=== PATIENT | male | born 2000 | race Two or more races ===

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

== ENCOUNTER 2020-01-22 07:22 | Emergency (ER) | payer MEDICAID ==
[~2020-01-22] VITALS: Ht 177.8 cm; Wt 63.5 kg
[2020-01-22] MEDS ORDERED: KETOROLAC 30MG/ML VIAL IV STA (08:22)
[2020-01-22] MEDS ORDERED: LIDOCAINE 5% PATCH TOP STA (08:22)
[2020-01-22 08:58] VITALS: BP 116/73
[2020-01-22 09:04] LABS: BASOPHILS % 0.3 % (0.0-2.0); EOSINOPHILS % 1.2 % (0.0-5.0); HEMATOCRIT. 46.8 % (42.0-52.0); HEMOGLOBIN. 15.8 g/dL (14.0-18.0); LYMPHOCYTES % 28.8 % (20.0-50.0); MEAN PLATELET VOLUME 8.2 fl (7.4-10.4); MONOCYTES % 10.5 % (2.0-8.0); NEUTROPHILS % 59.2 % (40.0-76.0); PLATELET 177 x1000/uL (130-400); RED BLOOD CELL COUNT 5.44 mill/uL (4.7-6.1); RED CELL DISTRIBUTION WIDTH 13.1 % (11.6-14.6)
[2020-01-22 09:06] LABS: CLARITY URINE CLOUDY (CLEAR); COLOR URINE DARK YELLOW (YELLOW); KETONES URINE 2+ (NEGATIVE); LEUKOCYTE ESTERASE URINE 2+ (NEGATIVE); NITRITE URINE NEGATIVE (NEGATIVE); OCCULT BLOOD URINE NEGATIVE (NEGATIVE); PH URINE 5.5 (4.5-8.0); PROTEIN URINE 1+ (NEGATIVE); SPECIFIC GRAVITY URINE 1.039 (1.005-1.030)
[2020-01-22 09:10] LABS: CHLORIDE 107 mEq/L (98-107)
== END 2020-01-22 10:59 | disposition home or self-care (01) ==
LOC: ER 07:22
DX: N39.0 Urinary tract infection, site not specified (principal); R07.89 Other chest pain
CPT/HCPCS: 36415; 71045; 80053; 81003; 83880; 84484; 85025; 87086; 93005; 96374; 99285; J1885

== ENCOUNTER 2021-01-13 07:25 | Emergency (ER) | payer MEDICAID ==
[~2021-01-13] VITALS: Ht 180.3 cm; Wt 70.0 kg
[2021-01-13] MEDS ORDERED: ACETAMINOPHEN 325MG TABLET PO STA (07:36)
[2021-01-13] MEDS ORDERED: SODIUM CHLORIDE 0.9% 1,000 ML IV ONE (07:45)
[2021-01-13 07:58] LABS: BASOPHILS % 0.9 % (0.0-2.0); EOSINOPHILS % 0.1 % (0.0-5.0); HEMATOCRIT. 41.1 % (42.0-52.0); HEMOGLOBIN. 13.8 g/dL (14.0-18.0); LYMPHOCYTES % 12.1 % (20.0-50.0); MEAN CORPUSCULAR VOLUME 83.1 fL (80.0-94.0); MEAN PLATELET VOLUME 8.3 fl (7.4-10.4); MONOCYTES % 7.8 % (2.0-8.0); NEUTROPHILS % 79.1 % (40.0-76.0); PLATELET 151 x1000/uL (130-400); RED BLOOD CELL COUNT 4.94 mill/uL (4.7-6.1); RED CELL DISTRIBUTION WIDTH 13.2 % (11.6-14.6)
[2021-01-13 08:05] LABS: CHLORIDE 109 mEq/L (98-107)
[2021-01-13 08:08] LABS: ETHANOL BLOOD < 10 mg/dL
[2021-01-13 08:43] LABS: CREATINE KINASE 12640 IU/L (39-308)
[2021-01-13 09:30] LABS: CLARITY URINE CLEAR (CLEAR); COLOR URINE YELLOW (YELLOW); KETONES URINE 1+ (NEGATIVE); LEUKOCYTE ESTERASE URINE NEGATIVE (NEGATIVE); NITRITE URINE NEGATIVE (NEGATIVE); OCCULT BLOOD URINE NEGATIVE (NEGATIVE); PROTEIN URINE NEGATIVE (NEGATIVE); UROBILINOGEN URINE 0.2 E.U./dL (0.2-1.0)
[2021-01-13 09:39] LABS: CANNABINOID URINE SCREEN PRESUMTIVE POSITIVE (NEGATIVE); PHENCYCLIDINE URINE SCREEN NEGATIVE (NEGATIVE)
[2021-01-13 09:40] LABS: *AMPHETAMINES SCREEN URINE NEGATIVE (NEGATIVE); *BARBITURATES SCREEN URINE NEGATIVE (NEGATIVE); *BENZODIAZEPINES SCREEN URINE PRESUMTIVE POSITIVE (NEGATIVE); *COCAINE SCREEN URINE NEGATIVE (NEGATIVE); METHADONE URINE SCREEN NEGATIVE (NEGATIVE); OPIATES URINE SCREEN NEGATIVE (NEGATIVE)
[2021-01-13 09:45] VITALS: BP 109/67
== END 2021-01-13 10:45 | disposition home or self-care (01) ==
LOC: ER 07:52
DX: R25.2 Cramp and spasm (principal); G40.909 Epilepsy, unspecified, not intractable, without status epilepticus; F12.10 Cannabis abuse, uncomplicated; R74.01 Elevation of levels of liver transaminase levels
CPT/HCPCS: 36415; 76705; 80053; 80305; 80320; 81003; 82550; 83690; 85025; 93005; 99285; J7030; Z7610; G0480

== ENCOUNTER 2021-05-23 12:43 | Emergency (ER) | payer MEDICAID ==
[~2021-05-23] VITALS: Ht 172.7 cm; Wt 66.0 kg
[2021-05-23] MEDS ORDERED: LEVETIRACETAM 500MG PREMIX 100 ML IV ONE (13:00)
[2021-05-23] MEDS ORDERED: LORAZEPAM 2MG/ML CPJ IV ONE (13:30)
[2021-05-23 14:10] LABS: CHLORIDE 108 mEq/L (98-107)
[2021-05-23 14:11] LABS: BASOPHILS % 0.1 % (0.0-2.0); EOSINOPHILS % 0.2 % (0.0-5.0); HEMATOCRIT. 43.7 % (42.0-52.0); HEMOGLOBIN. 14.7 g/dL (14.0-18.0); LYMPHOCYTES % 12.2 % (20.0-50.0); MEAN CORPUSCULAR HEMOGLOBIN 28.4 pg (28.0-32.0); MEAN CORPUSCULAR VOLUME 84.4 fL (80.0-94.0); MEAN PLATELET VOLUME 8.6 fl (7.4-10.4); MONOCYTES % 5.1 % (2.0-8.0); NEUTROPHILS % 82.4 % (40.0-76.0); PLATELET 187 x1000/uL (130-400); RED BLOOD CELL COUNT 5.18 mill/uL (4.7-6.1); RED CELL DISTRIBUTION WIDTH 14.2 % (11.6-14.6)
[2021-05-23] MEDS ORDERED: DEXT 5%/0.9% NACL 1,000 ML IV ONE (14:15)
[2021-05-23 14:19] LABS: PHENOBARBITAL 2.4 ug/mL (15.0-40.0); VALPROIC ACID <3.0 ug/mL ug/mL (50-100)
[2021-05-23 14:23] LABS: CARBAMAZEPINE < 0.5 ug/mL (4-12)
[2021-05-23] MEDS ORDERED: ZOLPIDEM TARTRATE 5MG TABLET PO PRN (17:00)
[2021-05-23] MEDS ORDERED: LORAZEPAM 2MG/ML CPJ IV PRN (17:00)
[2021-05-23] MEDS ORDERED: ACETAMINOPHEN 325MG TABLET PO PRN ×2 (17:00)
[2021-05-23] MEDS ORDERED: GUAIFENESIN 200MG/10ML SUGAR FREE UDC PO PRN (17:00)
[2021-05-23] MEDS ORDERED: KETOROLAC 15MG/ML VIAL IV PRN (17:00)
[2021-05-23] MEDS ORDERED: IPRATROPIUM/ALBUTEROL 0.5-3(2.5)MG/3ML NEB NEB PRN (17:00)
[2021-05-23] MEDS ORDERED: CLONIDINE 0.1MG TABLET PO PRN (17:00)
[2021-05-23] MEDS ORDERED: MAGNESIUM/ALUMINUM HYDROXIDE/SIMETHICONE 30ML UDC PO PRN (17:00)
[2021-05-23] MEDS ORDERED: ONDANSETRON HCL 4MG/2ML INJ IV PRN (17:00)
[2021-05-23] MEDS ORDERED: DOCUSATE SODIUM 100MG CAPSULE PO PRN (17:00)
[2021-05-23] MEDS ORDERED: NITROGLYCERIN 0.4MG TABLET SL SL PRN (17:15)
[2021-05-23 17:26] LABS: TOTAL IRON BINDING CAPACITY 309 ug/dL (250-450)
[2021-05-23 17:39] LABS: FOLIC ACID (FOLATE) SERUM >20 ng/mL ng/mL (>5.38)
[2021-05-23 17:50] LABS: VITAMIN B12 SERUM 383 pg/mL (211-911)
[2021-05-23 19:09] VITALS: BP 132/77
[2021-05-23] MEDS ORDERED: LEVETIRACETAM 500MG TABLET PO SCH (21:00)
[2021-05-23] MEDS ORDERED: FAMOTIDINE 20MG TABLET PO SCH (21:00)
== END 2021-05-23 19:13 | disposition left against medical advice (07) ==
LOC: ER 12:43 → CANBEDREQ 20:52
DX: G40.909 Epilepsy, unspecified, not intractable, without status epilepticus (principal)
CPT/HCPCS: 36415; 80053; 80156; 80165; 80184; 80185; 82607; 82746; 83036; 83540; 83550; 84145; 85025; 96361; 96374; 99285; J1953; J7042

== ENCOUNTER 2021-06-16 06:53 | Emergency (ER) | payer MEDICAID ==
[~2021-06-16] VITALS: Ht 180.3 cm; Wt 64.0 kg
[2021-06-16] MEDS ORDERED: LEVETIRACETAM 1000MG PREMIX 100 ML IV ONE (07:15)
[2021-06-16 07:57] LABS: BASOPHILS % 0.4 % (0.0-2.0); EOSINOPHILS % 2.2 % (0.0-5.0); HEMATOCRIT. 45.4 % (42.0-52.0); LYMPHOCYTES % 40.1 % (20.0-50.0); MEAN CORPUSCULAR VOLUME 84.8 fL (80.0-94.0); MEAN PLATELET VOLUME 8.6 fl (7.4-10.4); MONOCYTES % 9.3 % (2.0-8.0); PLATELET 169 x1000/uL (130-400); RED BLOOD CELL COUNT 5.35 mill/uL (4.7-6.1); RED CELL DISTRIBUTION WIDTH 14.4 % (11.6-14.6)
[2021-06-16 08:05] LABS: CHLORIDE 107 mEq/L (98-107)
[2021-06-16 08:11] LABS: ETHANOL BLOOD < 10 mg/dL
[2021-06-16] MEDS ORDERED: KEPP500 PO (09:51)
[2021-06-16 10:54] VITALS: BP 124/65
== END 2021-06-16 11:08 | disposition home or self-care (01) ==
LOC: ER 07:20
DX: R56.9 Unspecified convulsions (principal); Z91.14 Patient's other noncompliance with medication regimen
CPT/HCPCS: 36415; 80053; 80320; 85025; 93005; 96365; 99284; J1953; G0480

== ENCOUNTER 2021-06-28 06:41 | Emergency (ER) | payer MEDICAID ==
[~2021-06-28] VITALS: Ht 167.6 cm; Wt 73.0 kg
[~2021-06-28 06:41] MED LIST: KEPP500 PO
[2021-06-28] MEDS ORDERED: LEVETIRACETAM 1000MG PREMIX 100 ML IV ONE (07:15)
[2021-06-28 07:40] LABS: BASOPHILS % 0.2 % (0.0-2.0); HEMATOCRIT. 44.4 % (42.0-52.0); HEMOGLOBIN. 14.8 g/dL (14.0-18.0); LYMPHOCYTES % 18.6 % (20.0-50.0); MEAN CORPUSCULAR HEMOGLOBIN 28.4 pg (28.0-32.0); MEAN CORPUSCULAR VOLUME 85.1 fL (80.0-94.0); MEAN PLATELET VOLUME 8.2 fl (7.4-10.4); MONOCYTES % 9.5 % (2.0-8.0); NEUTROPHILS % 70.7 % (40.0-76.0); PLATELET 167 x1000/uL (130-400); RED BLOOD CELL COUNT 5.21 mill/uL (4.7-6.1)
[2021-06-28 07:46] LABS: CHLORIDE 112 mEq/L (98-107)
[2021-06-28 07:49] LABS: ETHANOL BLOOD < 10 mg/dL
[2021-06-28 09:56] VITALS: BP 119/67
== END 2021-06-28 10:19 | disposition home or self-care (01) ==
LOC: ER 07:42
DX: G40.909 Epilepsy, unspecified, not intractable, without status epilepticus (principal)
CPT/HCPCS: 36415; 70450; 80053; 80320; 85025; 96365; 99284; J1953; G0480

== ENCOUNTER 2021-07-16 04:15 | Emergency (ER) | payer SELFPAY ==
[~2021-07-16] VITALS: Ht 177.8 cm; Wt 79.0 kg
[2021-07-16] MEDS ORDERED: LEVETIRACETAM 500MG PREMIX 100 ML IV ONE (04:45)
[2021-07-16] MEDS ORDERED: SODIUM CHLORIDE 0.9% 1,000 ML IV ONE (04:45)
[2021-07-16 05:24] LABS: BASOPHILS % 0.2 % (0.0-2.0); EOSINOPHILS % 0.2 % (0.0-5.0); HEMATOCRIT. 44.8 % (42.0-52.0); LYMPHOCYTES % 12.6 % (20.0-50.0); MEAN CORPUSCULAR HEMOGLOBIN 28.4 pg (28.0-32.0); MEAN CORPUSCULAR VOLUME 85.3 fL (80.0-94.0); MEAN PLATELET VOLUME 8.2 fl (7.4-10.4); MONOCYTES % 5.7 % (2.0-8.0); NEUTROPHILS % 81.3 % (40.0-76.0); PLATELET 173 x1000/uL (130-400); RED BLOOD CELL COUNT 5.26 mill/uL (4.7-6.1); RED CELL DISTRIBUTION WIDTH 13.8 % (11.6-14.6)
[2021-07-16 05:27] LABS: CHLORIDE 107 mEq/L (98-107)
[2021-07-16] MEDS ORDERED: KEPP500 MT (05:34)
[2021-07-16] MEDS ORDERED: LEVETIRACETAM 100MG/ML ORAL SYR PO ONE (05:45)
[2021-07-16 06:00] VITALS: BP 118/68
[2021-07-16] MEDS ORDERED: LEVETIRACETAM 500MG/5ML CUP PO SCH (06:00)
== END 2021-07-16 06:34 | disposition home or self-care (01) ==
LOC: ER 04:22
DX: R56.9 Unspecified convulsions (principal)
CPT/HCPCS: 36415; 80053; 85025; 99283; J7030

== ENCOUNTER 2021-08-30 08:15 | Emergency (ER) | payer MEDICAID ==
[~2021-08-30] VITALS: Ht 175.3 cm; Wt 68.0 kg
[~2021-08-30 08:15] MED LIST changes: +KEPP500 MT
[2021-08-30] MEDS ORDERED: LEVETIRACETAM 1000MG PREMIX 100 ML IV ONE (09:15)
[2021-08-30 09:27] LABS: CHLORIDE 110 mEq/L (98-107)
[2021-08-30 09:29] LABS: BASOPHILS % 0.3 % (0.0-2.0); HEMATOCRIT. 44.7 % (42.0-52.0); HEMOGLOBIN. 14.6 g/dL (14.0-18.0); MEAN CORPUSCULAR VOLUME 85.5 fL (80.0-94.0); MEAN PLATELET VOLUME 8.7 fl (7.4-10.4); MONOCYTES % 7.9 % (2.0-8.0); NEUTROPHILS % 69.8 % (40.0-76.0); PLATELET 198 x1000/uL (130-400); RED BLOOD CELL COUNT 5.22 mill/uL (4.7-6.1); RED CELL DISTRIBUTION WIDTH 13.7 % (11.6-14.6)
[2021-08-30 09:31] LABS: ETHANOL BLOOD < 10 mg/dL
[2021-08-30 11:34] LABS: CLARITY URINE CLEAR (CLEAR); COLOR URINE YELLOW (YELLOW); KETONES URINE TRACE (NEGATIVE); LEUKOCYTE ESTERASE URINE NEGATIVE (NEGATIVE); NITRITE URINE NEGATIVE (NEGATIVE); OCCULT BLOOD URINE NEGATIVE (NEGATIVE); PH URINE 6.5 (4.5-8.0); PROTEIN URINE 1+ (NEGATIVE); SPECIFIC GRAVITY URINE 1.018 (1.005-1.030); UROBILINOGEN URINE 0.2 E.U./dL (0.2-1.0)
[2021-08-30 11:54] LABS: *BARBITURATES SCREEN URINE NEGATIVE (NEGATIVE); *COCAINE SCREEN URINE NEGATIVE (NEGATIVE); METHADONE URINE SCREEN NEGATIVE (NEGATIVE); OPIATES URINE SCREEN NEGATIVE (NEGATIVE)
[2021-08-30 11:55] LABS: *AMPHETAMINES SCREEN URINE NEGATIVE (NEGATIVE); *BENZODIAZEPINES SCREEN URINE NEGATIVE (NEGATIVE); CANNABINOID URINE SCREEN PRESUMTIVE POSITIVE (NEGATIVE); PHENCYCLIDINE URINE SCREEN NEGATIVE (NEGATIVE)
[2021-08-30] MEDS ORDERED: LEVETIRACETAM 500 MG in SODIUM CHLORIDE 0.9% 100 ML IV SCH (12:45)
[2021-08-30] MEDS ORDERED: DOCUSATE SODIUM 100MG CAPSULE PO PRN (12:45)
[2021-08-30] MEDS ORDERED: LORAZEPAM 0.5MG TABLET PO PRN (12:45)
[2021-08-30] MEDS ORDERED: ACETAMINOPHEN 325MG TABLET PO PRN ×2 (12:45)
[2021-08-30] MEDS ORDERED: IPRATROPIUM/ALBUTEROL 0.5-3(2.5)MG/3ML NEB HHN PRN (12:45)
[2021-08-30] MEDS ORDERED: HYDROCODONE/ACETAMINOPHEN 5/325MG TABLET PO PRN (12:45)
[2021-08-30] MEDS ORDERED: ONDANSETRON HCL 4MG/2ML INJ IV PRN (12:45)
[2021-08-30] MEDS ORDERED: CLONIDINE 0.1MG TABLET PO PRN (12:45)
[2021-08-30] MEDS ORDERED: LORAZEPAM 2MG/ML CPJ IV PRN (12:45)
[2021-08-30] MEDS ORDERED: NALOXONE HCL 0.4MG/ML VIAL IV PRN (13:00)
[2021-08-30 14:26] VITALS: BP 116/68
[2021-08-30] MEDS ORDERED: LEVETIRACETAM 500MG PREMIX 100 ML IV SCH (21:00)
== END 2021-08-30 14:29 | disposition admitted as inpatient to this hospital (09) ==
LOC: ER 08:15 → EDBEDREQ 12:30 → EDBEDREQTM 12:30 → CANRESERV 13:11 → ENRESERV 13:11 → ER 14:29 → CANBEDREQ 20:12
DX: G43.909 Migraine, unspecified, not intractable, without status migrainosus (principal); Z79.899 Other long term (current) drug therapy
CPT/HCPCS: 36415; 80053; 80305; 80320; 81003; 82962; 85025; 93005; 96365; 99285; J1953; G0480

== ENCOUNTER 2022-01-20 06:35 | Emergency (ER) | payer MEDICAID ==
[~2022-01-20] VITALS: Ht 172.7 cm; Wt 66.0 kg
[2022-01-20] MEDS ORDERED: LEVETIRACETAM 1000MG PREMIX 100 ML IV ONE (07:00)
[2022-01-20 07:19] LABS: CHLORIDE 110 mEq/L (98-107)
[2022-01-20 07:20] LABS: BASOPHILS % 0.4 % (0.0-2.0); EOSINOPHILS % 2.1 % (0.0-5.0); HEMATOCRIT. 47.1 % (42.0-52.0); HEMOGLOBIN. 15.9 g/dL (14.0-18.0); MEAN CORPUSCULAR HEMOGLOBIN 28.5 pg (28.0-32.0); MEAN CORPUSCULAR VOLUME 84.5 fL (80.0-94.0); MEAN PLATELET VOLUME 8.8 fl (7.4-10.4); MONOCYTES % 9.9 % (2.0-8.0); NEUTROPHILS % 53.6 % (40.0-76.0); PLATELET 183 x1000/uL (130-400); RED BLOOD CELL COUNT 5.57 mill/uL (4.7-6.1); RED CELL DISTRIBUTION WIDTH 13.6 % (11.6-14.6)
[2022-01-20 07:25] LABS: ETHANOL BLOOD < 10 mg/dL
[2022-01-20 09:06] VITALS: BP 110/68
[2022-01-20 09:08] LABS: CLARITY URINE CLEAR (CLEAR); COLOR URINE YELLOW (YELLOW); KETONES URINE NEGATIVE (NEGATIVE); LEUKOCYTE ESTERASE URINE NEGATIVE (NEGATIVE); NITRITE URINE NEGATIVE (NEGATIVE); OCCULT BLOOD URINE NEGATIVE (NEGATIVE); PH URINE 5.5 (4.5-8.0); PROTEIN URINE 1+ (NEGATIVE); SPECIFIC GRAVITY URINE 1.017 (1.005-1.030); UROBILINOGEN URINE 0.2 E.U./dL (0.2-1.0)
[2022-01-20 09:27] LABS: *AMPHETAMINES SCREEN URINE NEGATIVE (NEGATIVE); *BARBITURATES SCREEN URINE NEGATIVE (NEGATIVE); *BENZODIAZEPINES SCREEN URINE NEGATIVE (NEGATIVE); *COCAINE SCREEN URINE NEGATIVE (NEGATIVE); CANNABINOID URINE SCREEN PRESUMTIVE POSITIVE (NEGATIVE); METHADONE URINE SCREEN NEGATIVE (NEGATIVE); OPIATES URINE SCREEN NEGATIVE (NEGATIVE); PHENCYCLIDINE URINE SCREEN NEGATIVE (NEGATIVE)
== END 2022-01-20 09:17 | disposition home or self-care (01) ==
LOC: ER 06:35
DX: G40.909 Epilepsy, unspecified, not intractable, without status epilepticus (principal); S00.81XA Abrasion of other part of head, initial encounter; X58.XXXA Exposure to other specified factors, initial encounter; Y93.89 Activity, other specified; Y92.018 Other place in single-family (private) house as the place of occurrence of the external cause
CPT/HCPCS: 36415; 80053; 80305; 80320; 81003; 85025; 93005; 96365; 99284; J1953; G0480

== ENCOUNTER 2022-04-17 04:19 | Emergency (ER) | payer MEDICAID ==
[~2022-04-17] VITALS: Ht 172.7 cm; Wt 70.0 kg
[2022-04-17] MEDS ORDERED: LEVETIRACETAM 1000MG PREMIX 100 ML IV ONE (04:45)
[2022-04-17 04:59] LABS: CHLORIDE 102 mEq/L (98-107)
[2022-04-17 05:01] LABS: BASOPHILS % 0.7 % (0.0-2.0); EOSINOPHILS % 0.6 % (0.0-5.0); HEMATOCRIT. 46.5 % (42.0-52.0); HEMOGLOBIN. 15.2 g/dL (14.0-18.0); LYMPHOCYTES % 26.9 % (20.0-50.0); MEAN CORPUSCULAR VOLUME 85.9 fL (80.0-94.0); NEUTROPHILS % 62.8 % (40.0-76.0); PLATELET 189 x1000/uL (130-400); RED BLOOD CELL COUNT 5.42 mill/uL (4.7-6.1); RED CELL DISTRIBUTION WIDTH 14.2 % (11.6-14.6)
[2022-04-17 05:07] LABS: ETHANOL BLOOD < 10 mg/dL
[2022-04-17 06:50] VITALS: BP 112/54
== END 2022-04-17 06:50 | disposition home or self-care (01) ==
LOC: ER 04:19
DX: R56.9 Unspecified convulsions (principal); F17.290 Nicotine dependence, other tobacco product, uncomplicated; F12.10 Cannabis abuse, uncomplicated
CPT/HCPCS: 36415; 80053; 80320; 85025; 96365; 99284; J1953; G0480

== ENCOUNTER 2023-03-14 18:04 | Emergency (ER) | payer MEDICAID, OTHER ==
[~2023-03-14] VITALS: Ht 177.8 cm; Wt 60.0 kg
[2023-03-14 18:36] LABS: BASOPHILS % 0.4 % (0.0-2.0); EOSINOPHILS % 1.7 % (0.0-5.0); HEMATOCRIT. 43.1 % (42.0-52.0); HEMOGLOBIN. 14.4 g/dL (14.0-18.0); LYMPHOCYTES % 29.8 % (20.0-50.0); MEAN CORPUSCULAR HEMOGLOBIN 28.4 pg (28.0-32.0); MEAN CORPUSCULAR VOLUME 84.9 fL (80.0-94.0); MEAN PLATELET VOLUME 8.1 fl (7.4-10.4); MONOCYTES % 9.6 % (2.0-8.0); NEUTROPHILS % 58.5 % (40.0-76.0); PLATELET 207 x1000/uL (130-400); RED BLOOD CELL COUNT 5.08 mill/uL (4.7-6.1); RED CELL DISTRIBUTION WIDTH 14.5 % (11.6-14.6)
[2023-03-14 18:54] LABS: CHLORIDE 108 mEq/L (98-107)
[2023-03-14] MEDS ORDERED: LEVETIRACETAM 1000MG PREMIX 100 ML IV ONE (20:30)
[2023-03-14 22:43] VITALS: BP 127/87
== END 2023-03-14 22:47 | disposition home or self-care (01) ==
LOC: ER 18:04
DX: R56.9 Unspecified convulsions (principal)
CPT/HCPCS: 36415; 80053; 82962; 84484; 85025; 93005; 99284; J1953; Z7610

== ENCOUNTER 2023-04-10 09:16 | Emergency (ER) | payer MEDICAID ==
[~2023-04-10] VITALS: Ht 177.8 cm; Wt 72.7 kg
[2023-04-10 09:35] VITALS: BP 117/72; PULSE 76; RESP 18; TEMP 98.7; O2SAT 100
[2023-04-10] MEDS ORDERED: CEFTRIAXONE SODIUM 500 MG/VIAL IM ONE (10:30)
[2023-04-10] MEDS ORDERED: DOXY100C5 MT (10:35)
[2023-04-10 11:53] LABS: CLARITY URINE CLEAR (CLEAR); COLOR URINE DARK YELLOW (YELLOW); KETONES URINE NEGATIVE (NEGATIVE); LEUKOCYTE ESTERASE URINE TRACE (NEGATIVE); NITRITE URINE NEGATIVE (NEGATIVE); OCCULT BLOOD URINE NEGATIVE (NEGATIVE); PH URINE 5.5 (4.5-8.0); PROTEIN URINE 1+ (NEGATIVE); SPECIFIC GRAVITY URINE 1.032 (1.005-1.030)
== END 2023-04-10 11:03 | disposition home or self-care (01) ==
LOC: ER 09:16
DX: Z20.2 Contact with and (suspected) exposure to infections with a predominantly sexual mode of transmission (principal)
CPT/HCPCS: 99283; 87491; 87591; 81003; 96372; J0696

== ENCOUNTER 2023-04-20 05:12 | Emergency (ER) | payer MEDICAID ==
[~2023-04-20] VITALS: Ht 182.9 cm; Wt 63.7 kg
[~2023-04-20 05:12] MED LIST changes: +DOXY100C5 MT
[2023-04-20 05:29] VITALS: TEMP 98.2; O2SAT 100
[2023-04-20] MEDS ORDERED: KETOROLAC 30MG/ML VIAL IV STA (06:22)
[2023-04-20] MEDS ORDERED: SODIUM CHLORIDE 0.9% 1,000 ML IV ONE (06:30)
[2023-04-20] MEDS ORDERED: METOCLOPRAMIDE HCL 10MG/2ML VIAL IV ONE (06:30)
[2023-04-20 07:09] VITALS: BP 108/71; PULSE 57; RESP 15
== END 2023-04-20 07:09 | disposition left against medical advice (07) ==
LOC: ER 05:12
DX: R51.9 Headache, unspecified (principal); F12.10 Cannabis abuse, uncomplicated; Z86.59 Personal history of other mental and behavioral disorders
CPT/HCPCS: 99281; J7030; J1885; J2765

== ENCOUNTER 2023-10-25 16:26 | Emergency (ER) | payer OTHER ==
[2023-10-25 16:35] VITALS: PULSE 75; RESP 18
== END 2023-10-25 17:25 | disposition left against medical advice (07) ==
LOC: ER 16:26
DX: Z76.0 Encounter for issue of repeat prescription (principal); Z53.21 Procedure and treatment not carried out due to patient leaving prior to being seen by health care provider
CPT/HCPCS: 99281

== ENCOUNTER 2023-10-26 09:36 | Emergency (ER) | payer OTHER ==
[~2023-10-26] VITALS: Ht 177.8 cm; Wt 78.0 kg
[2023-10-26 09:44] VITALS: BP 117/71; PULSE 69; TEMP 98.5; O2SAT 100
[2023-10-27] MEDS ORDERED: KEPP500 MT (08:33)
== END 2023-10-26 10:28 | disposition left against medical advice (07) ==
LOC: ER 09:36
DX: Z76.0 Encounter for issue of repeat prescription (principal); Z53.21 Procedure and treatment not carried out due to patient leaving prior to being seen by health care provider
CPT/HCPCS: 99281

== ENCOUNTER 2023-10-27 07:35 | Emergency (ER) | payer OTHER ==
[~2023-10-27] VITALS: Ht 175.3 cm; Wt 68.0 kg
[2023-10-27 07:42] VITALS: BP 118/67; PULSE 58; RESP 20; TEMP 98.6; O2SAT 100
[2023-10-27] MEDS ORDERED: KEPP500 MT (08:33)
== END 2023-10-27 08:58 | disposition home or self-care (01) ==
LOC: ER 07:35
DX: Z76.0 Encounter for issue of repeat prescription (principal); F12.10 Cannabis abuse, uncomplicated; Z86.59 Personal history of other mental and behavioral disorders
CPT/HCPCS: 99281

== ENCOUNTER 2023-11-03 07:31 | Emergency (ER) | payer OTHER ==
[~2023-11-03] VITALS: Ht 175.3 cm; Wt 60.0 kg
[2023-11-03 07:33] VITALS: O2SAT 98
[2023-11-03] MEDS ORDERED: LEVETIRACETAM 1000MG PREMIX 100 ML IV ONE (07:45)
[2023-11-03 08:34] LABS: BASOPHILS % 0.8 % (0.0-2.0); EOSINOPHILS % 1.1 % (0.0-5.0); HEMATOCRIT. 47.5 % (42.0-52.0); HEMOGLOBIN. 15.5 g/dL (14.0-18.0); LYMPHOCYTES % 19.2 % (20.0-50.0); MEAN CORPUSCULAR HGB CONC 32.6 g/dL (31.0-37.0); MEAN PLATELET VOLUME 8.7 fl (7.4-10.4); MONOCYTES % 7.1 % (2.0-8.0); NEUTROPHILS % 71.8 % (40.0-76.0); PLATELET 209 x1000/uL (130-400); RED BLOOD CELL COUNT 5.33 mill/uL (4.7-6.1); WHITE BLOOD COUNT 4.7 x1000/uL (4.5-11.0)
[2023-11-03 08:55] LABS: ALANINE AMINOTRANSFERASE 15 IU/L (10-49); ALBUMIN 4.2 g/dL (3.2-4.8); ASPARTATE AMINOTRANSFERASE 19 IU/L (<34); BILIRUBIN TOTAL 0.6 mg/dL (0.1-1.0); CALCIUM 9.6 mg/dL (8.7-10.4); CARBON DIOXIDE 25 mEq/L (21-32); CHLORIDE 108 mEq/L (98-107); CREATININE 0.9 mg/dL (0.6-1.3); GLUCOSE 87 mg/dL (70-105); POTASSIUM 4.3 mEq/L (3.5-5.1); PROTEIN TOTAL 7.4 g/dL (6.0-8.3); SODIUM 140 mEq/L (136-145); UREA NITROGEN BLOOD 14 mg/dL (9-23)
[2023-11-03 08:57] LABS: ETHANOL BLOOD < 10 mg/dL (<10)
[2023-11-03 10:09] VITALS: BP 125/63; PULSE 77; RESP 18; TEMP 98.6
[2023-11-03 10:33] LABS: CLARITY URINE CLEAR (CLEAR); COLOR URINE YELLOW (YELLOW); GLUCOSE URINE NEGATIVE (NEGATIVE); KETONES URINE TRACE (NEGATIVE); LEUKOCYTE ESTERASE URINE NEGATIVE (NEGATIVE); NITRITE URINE NEGATIVE (NEGATIVE); OCCULT BLOOD URINE NEGATIVE (NEGATIVE); PH URINE 5.5 (4.5-8.0); PROTEIN URINE NEGATIVE (NEGATIVE); UROBILINOGEN URINE 0.2 E.U./dL (0.2-1.0)
[2023-11-03 11:07] LABS: *AMPHETAMINES SCREEN URINE NEGATIVE (NEGATIVE); *BARBITURATES SCREEN URINE NEGATIVE (NEGATIVE); *BENZODIAZEPINES SCREEN URINE NEGATIVE (NEGATIVE); *COCAINE SCREEN URINE NEGATIVE (NEGATIVE); CANNABINOID URINE SCREEN PRESUMPTIVE POSITIVE (NEGATIVE); ECSTASY MDMA SCREEN URINE NEGATIVE (NEGATIVE); METHADONE URINE SCREEN Neg (NEGATIVE); OPIATES URINE SCREEN NEGATIVE (NEGATIVE); PHENCYCLIDINE URINE SCREEN NEGATIVE (NEGATIVE)
== END 2023-11-03 10:10 | disposition home or self-care (01) ==
LOC: ER 07:31
DX: R56.9 Unspecified convulsions (principal); F12.10 Cannabis abuse, uncomplicated
CPT/HCPCS: 80053; 80305; 81003; 80320; 82962; 85025; 36415; 96365; 99284; J1953; Z7610 ×2; G0480

== ENCOUNTER 2024-01-31 05:03 | Emergency (ER) | payer OTHER ==
[~2024-01-31] VITALS: Ht 182.9 cm; Wt 86.0 kg
[2024-01-31 05:04] VITALS: O2SAT 98
[2024-01-31] MEDS: LEVETIRACETAM 1000MG PREMIX 100 ML IV ONE (05:32)
[2024-01-31 05:39] LABS: HEMOGLOBIN. 16.9 g/dL (14.0-18.0); MEAN CORPUSCULAR HEMOGLOBIN 30.2 pg (28.0-32.0); MEAN CORPUSCULAR HGB CONC 33.7 g/dL (31.0-37.0); MEAN CORPUSCULAR VOLUME 89.6 fL (80.0-94.0); MEAN PLATELET VOLUME 8.5 fl (7.4-10.4); PLATELET 183 x1000/uL (130-400); RED BLOOD CELL COUNT 5.58 mill/uL (4.7-6.1); RED CELL DISTRIBUTION WIDTH 13.6 % (11.6-14.6); WHITE BLOOD COUNT 8.7 x1000/uL (4.5-11.0)
[2024-01-31 05:40] LABS: DIFFERENTIAL COMMENT 1
[2024-01-31 05:49] LABS: CARBON DIOXIDE 19 mEq/L (21-32); CHLORIDE 106 mEq/L (98-107); POTASSIUM 3.6 mEq/L (3.5-5.1); SODIUM 140 mEq/L (136-145)
[2024-01-31 05:50] LABS: CALCIUM 9.4 mg/dL (8.7-10.4)
[2024-01-31 05:54] LABS: CREATININE 1.2 mg/dL (0.6-1.3)
[2024-01-31 05:55] LABS: GLUCOSE 121 mg/dL (70-105); UREA NITROGEN BLOOD 9 mg/dL (9-23)
[2024-01-31 05:56] LABS: ALANINE AMINOTRANSFERASE 21 IU/L (10-49); ALBUMIN 4.9 g/dL (3.2-4.8); ASPARTATE AMINOTRANSFERASE 24 IU/L (<34)
[2024-01-31 05:57] LABS: BILIRUBIN TOTAL 0.5 mg/dL (0.1-1.0); PROTEIN TOTAL 8.2 g/dL (6.0-8.3)
[2024-01-31 06:00] LABS: ETHANOL BLOOD < 10 mg/dL (<10)
[2024-01-31 09:21] LABS: PLATELET ESTIMATE NORMAL
[2024-01-31 13:09] VITALS: BP 114/69; PULSE 61; RESP 22; TEMP 98.1
== END 2024-01-31 14:18 | disposition home or self-care (01) ==
LOC: ER 05:03 → CANBEDREQ 14:15 → ER 14:18
DX: R56.9 Unspecified convulsions (principal); R32 Unspecified urinary incontinence; F12.10 Cannabis abuse, uncomplicated
CPT/HCPCS: 80053; 80320; 82962; 85025; 36415; 96365; 99285; J1953; G0480

== ENCOUNTER 2024-04-28 08:28 | Emergency (ER) | payer OTHER ==
[~2024-04-28] VITALS: Ht 177.8 cm; Wt 65.0 kg
[2024-04-28 08:33] VITALS: O2SAT 99
[2024-04-28] MEDS: LEVETIRACETAM 250MG TABLET PO ONE (09:26)
[2024-04-28] MEDS ORDERED: KEPP500 MT (09:35)
[2024-04-28 10:13] VITALS: BP 128/78; PULSE 76; RESP 18; TEMP 98.6
== END 2024-04-28 10:15 | disposition home or self-care (01) ==
LOC: ER 08:28
DX: G40.909 Epilepsy, unspecified, not intractable, without status epilepticus (principal); F12.10 Cannabis abuse, uncomplicated; Z76.0 Encounter for issue of repeat prescription
CPT/HCPCS: 99281

== ENCOUNTER 2024-06-07 07:14 | Emergency (ER) | payer OTHER ==
[~2024-06-07] VITALS: Ht 177.8 cm; Wt 66.0 kg
[2024-06-07 07:17] VITALS: BP 125/74; RESP 12; TEMP 98.5; O2SAT 100
[2024-06-07 07:22] VITALS: PULSE 78; O2SAT 100
[2024-06-07] MEDS ORDERED: KEPP500 PO (07:55)
== END 2024-06-07 08:33 | disposition home or self-care (01) ==
LOC: ER 07:17
DX: Z76.0 Encounter for issue of repeat prescription (principal); R56.9 Unspecified convulsions; F12.10 Cannabis abuse, uncomplicated; Z98.890 Other specified postprocedural states
CPT/HCPCS: 99281

== ENCOUNTER 2024-07-08 08:34 | Emergency (ER) | payer OTHER ==
[~2024-07-08] VITALS: Ht 180.3 cm; Wt 61.0 kg
[2024-07-08 08:42] VITALS: O2SAT 99
[2024-07-08] MEDS ORDERED: KEPP500 MT (08:54)
[2024-07-08 10:01] VITALS: BP 122/78; PULSE 60; RESP 16; TEMP 36.83628; O2SAT 99
[2024-07-08] MEDS: LEVETIRACETAM 500MG TABLET PO STA (10:01)
== END 2024-07-08 10:02 | disposition home or self-care (01) ==
LOC: ER 08:43
DX: Z76.0 Encounter for issue of repeat prescription (principal); F12.90 Cannabis use, unspecified, uncomplicated; Z98.890 Other specified postprocedural states; Z79.899 Other long term (current) drug therapy
CPT/HCPCS: 99283

== ENCOUNTER 2024-08-10 10:39 | Emergency (ER) | payer OTHER ==
[2024-08-10 10:45] VITALS: PULSE 71; RESP 18; O2SAT 98
[2024-08-10] MEDS ORDERED: KEPP500 MT (11:09)
== END 2024-08-10 11:41 | disposition home or self-care (01) ==
LOC: ER 10:48
DX: Z76.0 Encounter for issue of repeat prescription (principal); F12.90 Cannabis use, unspecified, uncomplicated; Z98.890 Other specified postprocedural states; Z79.899 Other long term (current) drug therapy
CPT/HCPCS: 99281

== ENCOUNTER 2025-01-09 09:54 | Emergency (ER) | payer OTHER ==
[~2025-01-09] VITALS: Ht 180.3 cm; Wt 64.0 kg
[2025-01-09 10:01] VITALS: O2SAT 100
[2025-01-09] MEDS ORDERED: KEPP500 MT (10:29)
[2025-01-09 11:20] VITALS: BP 120/76; PULSE 62; RESP 12; TEMP 36.7; O2SAT 100
== END 2025-01-09 11:26 | disposition home or self-care (01) ==
LOC: ER 09:54
DX: Z76.0 Encounter for issue of repeat prescription (principal); F12.90 Cannabis use, unspecified, uncomplicated; Z79.899 Other long term (current) drug therapy
CPT/HCPCS: 99283

== ENCOUNTER 2025-03-10 09:17 | Emergency (ER) | payer OTHER ==
[~2025-03-10] VITALS: Ht 180.3 cm; Wt 85.0 kg
[2025-03-10 09:25] VITALS: O2SAT 99
[2025-03-10] MEDS ORDERED: KEPP500 MT (09:33)
[2025-03-10 09:55] VITALS: BP 134/75; PULSE 54; RESP 18; TEMP 36.7; O2SAT 99
[2025-03-10] MEDS: LEVETIRACETAM 500MG TABLET PO ONE (09:55)
== END 2025-03-10 10:04 | disposition home or self-care (01) ==
LOC: ER 09:17
DX: R56.9 Unspecified convulsions (principal); F12.90 Cannabis use, unspecified, uncomplicated; Z76.0 Encounter for issue of repeat prescription; Z79.899 Other long term (current) drug therapy
CPT/HCPCS: 99283

== ENCOUNTER 2025-05-09 13:05 | Emergency (ER) | payer OTHER ==
[~2025-05-09] VITALS: Ht 180.3 cm; Wt 91.0 kg
[2025-05-09 13:10] VITALS: BP 122/74; TEMP 36.7; O2SAT 100
[2025-05-09 13:13] VITALS: PULSE 82; RESP 18; O2SAT 98
[2025-05-09] MEDS ORDERED: KEPP500 MT (13:47)
== END 2025-05-09 13:55 | disposition home or self-care (01) ==
LOC: ER 13:05
DX: G40.909 Epilepsy, unspecified, not intractable, without status epilepticus (principal); F12.10 Cannabis abuse, uncomplicated; Z76.0 Encounter for issue of repeat prescription; Z79.899 Other long term (current) drug therapy; Z98.890 Other specified postprocedural states
CPT/HCPCS: 99282

== ENCOUNTER 2025-06-09 09:31 | Emergency (ER) | payer OTHER ==
[~2025-06-09] VITALS: Ht 180.3 cm; Wt 83.9 kg
[2025-06-09 09:46] VITALS: O2SAT 100
[2025-06-09 09:49] VITALS: TEMP 36.7
[2025-06-09] MEDS ORDERED: KEPP500 MT (10:28)
[2025-06-09 10:51] VITALS: BP 136/85; PULSE 72; RESP 15; O2SAT 100
== END 2025-06-09 10:51 | disposition home or self-care (01) ==
LOC: ER 09:31
DX: R56.9 Unspecified convulsions (principal); Z76.0 Encounter for issue of repeat prescription; Z79.899 Other long term (current) drug therapy; F12.90 Cannabis use, unspecified, uncomplicated; Z98.890 Other specified postprocedural states
CPT/HCPCS: 99281

== ENCOUNTER 2025-07-08 10:51 | Emergency (ER) | payer OTHER ==
[~2025-07-08] VITALS: Ht 180.3 cm; Wt 67.0 kg
[2025-07-08 10:55] VITALS: BP 133/80; PULSE 96; RESP 17; TEMP 36.8; O2SAT 97
[2025-07-08] MEDS ORDERED: LEVE250T2 MT (11:30)
== END 2025-07-08 11:46 | disposition home or self-care (01) ==
LOC: ER 10:51
DX: R56.9 Unspecified convulsions (principal); F12.90 Cannabis use, unspecified, uncomplicated; Z76.0 Encounter for issue of repeat prescription; Z79.899 Other long term (current) drug therapy; Z98.890 Other specified postprocedural states
CPT/HCPCS: 99281; 99282